=== PATIENT | female | born 1990 | race Caucasian/White ===

== ENCOUNTER → 2017-03-18 | Outpatient (CLI) | payer OTHER ==
[~2017-03-18] MED LIST: AUGM500T34 GT; COLA50CA3 PO; IBUP80TA PO; MOM30SS PO; PERCOCET PO; PRENTAB74 PO
[2017-03-18 10:57] LABS: ALBUMIN 3.6 GM/DL (3.2-5.2); ALBUMIN/GLOBULIN RATIO 1.16 (1.00-1.93); ALKALINE PHOSPHATASE 91 U/L (45-117); ALT/SGPT 19 U/L (12-78); ANION GAP 6 MEQ/L (8-16); AST/SGOT 12 U/L (15-37); BILIRUBIN,TOTAL 0.9 MG/DL (0.2-1.0); BLOOD UREA NITROGEN 12 MG/DL (7-18); CALCIUM LEVEL 8.1 MG/DL (8.5-10.1); CARBON DIOXIDE LEVEL 25 MEQ/L (21-32); CHLORIDE LEVEL 109 MEQ/L (98-107); CHOLESTEROL LEVEL 155 MG/DL (<200); CREATININE FOR GFR 0.66 MG/DL (0.55-1.02); FREE T4 0.99 NG/DL (0.76-1.46); GLOMERULAR FILTRATION RATE > 60.0 (>60); GLUCOSE, FASTING 86 MG/DL (70-105); SODIUM LEVEL 140 MEQ/L (136-145); TOTAL PROTEIN 6.7 GM/DL (6.4-8.2); TRIGLYCERIDES LEVEL 78 MG/DL (<150)
== END ==
LOC: M LAB 10:00
PROVIDERS: ATTEND Family Medicine
DX: Z82.49 Family history of ischemic heart disease and other diseases of the circulatory system (principal); Z13.29 Encounter for screening for other suspected endocrine disorder

== ENCOUNTER → 2017-09-07 | Outpatient (REF) | payer OTHER | LOC: M LAB REF 17:23 | PROVIDERS: ATTEND Advanced Practice Midwife | DX: Z12.4 Encounter for screening for malignant neoplasm of cervix (principal) ==

== ENCOUNTER → 2018-03-23 | Outpatient (CLI) | payer OTHER ==
[2018-03-23 18:39] LABS: TOTAL 25(OH) VITAMIN D 43.9 NG/ML (30.0-100.0)
== END ==
LOC: M SMT 13:57
DX: E55.9 Vitamin D deficiency, unspecified (principal)
CPT/HCPCS: 82306

== ENCOUNTER → 2018-09-04 | Outpatient (CLI) | payer OTHER ==
[2018-09-04 13:05] LABS: BASO % 0.3 % (0.0-1.0); EOS # 0.1 10^3/uL (0.0-0.50); EOS % 1.9 % (0.0-3.0); HEMATOCRIT 37.7 % (36.0-47.0); HEMOGLOBIN 12.4 g/dl (12.0-15.5); IMMATURE GRANULOCYTE % 0.5 % (0-3.0); LYMPH # 1.2 10^3/uL (1.5-6.5); LYMPH % 20.9 % (24.0-44.0); MEAN CORPUSCULAR HGB CONC 32.9 g/dl (32.0-36.5); MEAN CORPUSCULAR VOLUME 91.3 fl (80.0-96.0); MONO # 0.4 10^3/uL (0.0-0.8); MONO % 6.5 % (0.0-5.0); NEUTROPHILS # 4.1 10^3/uL (1.8-7.7); NEUTROPHILS % 69.9 % (36.0-66.0); PLATELET COUNT, AUTOMATED 189 10^3/uL (150-450); RED BLOOD COUNT 4.13 10^6/uL (4.00-5.40); RED CELL DISTRIBUTION WIDTH 12.8 % (11.5-14.5); WHITE BLOOD COUNT 5.8 10^3/uL (4.0-10.0)
[2018-09-04 14:39] LABS: CHLAMYDIA DNA AMPLIFICATION NEGATIVE (NEGATIVE); GC DNA AMPLIFICATION NEGATIVE (NEGATIVE)
[2018-09-06 10:57] LABS: HBsAg Prenatal NEGATIVE (NEGATIVE); HIV 1&2 SCREEN CENTAUR NEGATIVE (NEGATIVE); RUBELLA IgG QUALITATIVE IMMUNE (IMMUNE)
[2018-09-06 10:57] LABS: HEPATITIS C VIRUS ABY INDEX < 0.0 INDEX (<0.8)
== END ==
LOC: M WUC 10:55
DX: Z34.81 Encounter for supervision of other normal pregnancy, first trimester (principal)
CPT/HCPCS: 86762

== ENCOUNTER → 2018-10-25 | Outpatient (CLI) | payer OTHER | LOC: M SMT 08:34 | DX: Z34.82 Encounter for supervision of other normal pregnancy, second trimester (principal); Z36.89 Encounter for other specified antenatal screening; Z3A.18 18 weeks gestation of pregnancy | CPT/HCPCS: 76811 ==

== ENCOUNTER → 2018-12-02 | Outpatient (CLI) | payer OTHER ==
--- NOTE | 2018-12-03 04:24 | REP ---
Clinical: Anatomical evaluation. Comparison: 10/25/2018 . Findings: Examination demonstrates a single live intrauterine in cephalic presentation. motion is identified by technologist. Placenta is noted posterior and grade grade 1 without evidence for placenta previa or abruption. Amniotic fluid volume is normal. Cervix measures 3.7 cm in length and appears closed. No evidence for nuchal cord. Gestational age by LMP 24 weeks 0 days with SURESH 03/24/2019 . Gestational age by current measurements 24 weeks one with SURESH 2018 . FHR equals 147 beats per minute. Estimated weight 759 grams ( 73rd percentile). Anatomical assessment demonstrates normal structures including cranium, choroid plexus, cavum, cerebellum/posterior fossa, facial features, lungs, four-chamber heart/ventricular outflow tracts, diaphragm, stomach, cord insertion/three-vessel cord, bladder, spine, and extremities. Bilateral renal pelviectasis to 5.1 mm diameter noted. Impression: 1. Single live intrauterine in cephalic presentation demonstrating appropriate interval growth. 2. With the exception of mild renal pelviectasis to 5.1 mm diameter, the anatomical assessment is complete and normal. Electronically Signed by Tripp Del Rio MD 12/03/2018 04:15 A
== END ==
LOC: M SMT 08:27
PROVIDERS: ATTEND Obstetrics & Gynecology
DX: Z34.82 Encounter for supervision of other normal pregnancy, second trimester (principal); Z36.89 Encounter for other specified antenatal screening; Z3A.24 24 weeks gestation of pregnancy

== ENCOUNTER → 2018-12-14 | Outpatient (CLI) | payer OTHER ==
[2018-12-14 13:49] LABS: HEMOGLOBIN 11.4 g/dl (12.0-15.5); MEAN CORPUSCULAR HEMOGLOBIN 30.6 pg (27.0-33.0); MEAN CORPUSCULAR HGB CONC 33.5 g/dl (32.0-36.5); MEAN CORPUSCULAR VOLUME 91.4 fl (80.0-96.0); PLATELET COUNT, AUTOMATED 181 10^3/uL (150-450); RED BLOOD COUNT 3.72 10^6/uL (4.00-5.40); WHITE BLOOD COUNT 8.3 10^3/uL (4.0-10.0)
== END ==
LOC: M SMT 09:34
PROVIDERS: ATTEND Obstetrics & Gynecology
DX: Z34.82 Encounter for supervision of other normal pregnancy, second trimester (principal); Z36.89 Encounter for other specified antenatal screening

== ENCOUNTER → 2019-02-02 | Outpatient (REF) | payer OTHER | LOC: M LAB REF 17:37 | PROVIDERS: ATTEND Family Medicine | DX: J02.9 Acute pharyngitis, unspecified (principal) ==

== ENCOUNTER → 2019-03-02 | Outpatient (REF) | payer OTHER ==
[~2019-03-02] MED LIST changes: +FLUO20CA8 PO; +MULTTAB20 PO; +OMEP40CA2 PO; +OXYC1TAB23 PO; -PERCOCET PO; +VITAD1000T PO
== END ==
LOC: M LAB REF 17:23
PROVIDERS: ATTEND Obstetrics & Gynecology
DX: Z34.83 Encounter for supervision of other normal pregnancy, third trimester (principal); Z36.89 Encounter for other specified antenatal screening

== ENCOUNTER 2019-03-16 07:28 | Inpatient (IN) | payer OTHER ==
[2019-03-16] VITALS (8 sets, daily range): BP systolic 102–126; BP diastolic 53–68
[~2019-03-16] VITALS: Ht 162.6 cm; Wt 82.2 kg
[2019-03-16] MEDS ORDERED: BICITRA 30ML SOLN UDC PO ONE (08:00)
[2019-03-16] MEDS ORDERED: LR 1,000 ML IV ONE (08:00)
[2019-03-16 08:44] LABS: HEMATOCRIT 35.9 % (36.0-47.0); HEMOGLOBIN 11.8 g/dl (12.0-15.5); MEAN CORPUSCULAR HEMOGLOBIN 30.3 pg (27.0-33.0); MEAN CORPUSCULAR HGB CONC 32.9 g/dl (32.0-36.5); MEAN CORPUSCULAR VOLUME 92.1 fl (80.0-96.0); PLATELET COUNT, AUTOMATED 171 10^3/uL (150-450); WHITE BLOOD COUNT 8.1 10^3/uL (4.0-10.0)
[2019-03-16] MEDS ORDERED: LR 1,000 ML IV SCH ×2 (09:00→12:15)
[2019-03-16] MEDS ORDERED: NALBUPHINE HCL 10 MG/ML AMP (J2300) IV PRN (10:21)
[2019-03-16] MEDS ORDERED: METOCLOPRAMIDE INJ 10MG/2ML VIAL (J2765) IV PRN (10:21)
[2019-03-16] MEDS ORDERED: NALOXONE INJ 0.4 MG/1 ML VIAL (J2310) IV PRN ×2 (10:21)
[2019-03-16] MEDS ORDERED: ONDANSETRON 4MG/2ML VIAL (J2405) IV PRN ×3 (10:21→12:15)
[2019-03-16] MEDS ORDERED: diphenhydrAMINE INJ 50MG/ML VIAL (J1200) IV PRN (10:21)
[2019-03-16] MEDS ORDERED: OXYTOCIN INJ 10 UNITS/ML VIAL (J2590) As Ordered ONE (10:38)
[2019-03-16] MEDS ORDERED: BUPIVACAINE/DEXTROSE 0.75% 2 ML AMP As Ordered ONE (10:38)
[2019-03-16] MEDS ORDERED: MORPHINE PRES-FREE INJ 10 MG/10 ML VIAL (J2274) As Ordered ONE (10:38)
[2019-03-16] MEDS ORDERED: ONDANSETRON 4MG/2ML VIAL (J2405) As Ordered ONE (11:05)
[2019-03-16] MEDS ORDERED: OXYTOCIN 30 UNITS IN 0.9% NaCl 500ML IV BAG (J2590) As Ordered ONE (11:41)
[2019-03-16] MEDS ORDERED: OXYTOCIN DRIP 30 UNITS in APPROPRIATE DILUENT 1 EA IV SCH (11:42)
[2019-03-16] MEDS ORDERED: PERCOCET 5MG/325MG TAB PO PRN ×3 (11:45→12:15)
[2019-03-16] MEDS ORDERED: MOM 30ML SUSPENSION UDC PO PRN (11:45)
[2019-03-16] MEDS ORDERED: RHOGAM 300 MCG (1500 IU) INJ (J2790) IM SCH (11:45)
[2019-03-16] MEDS ORDERED: MEASLES,MUMPS,RUBELLA VACCINE INJ (MMR-II) (90707) SC SCH (11:45)
[2019-03-16] MEDS ORDERED: KETOROLAC 30 MG/ML VIAL (J1885) IV PRN (12:15)
[2019-03-16] MEDS ORDERED: fentaNYL 100 MCG/2 ML INJECTION (J3010) IV PRN (12:15)
[2019-03-16] MEDS ORDERED: KETOROLAC 30 MG/ML VIAL (J1885) As Ordered ONE (12:16)
--- NOTE | 2019-03-16 17:25 | RO ---
DATE OF PROCEDURE: 03/16/2019 PREOPERATIVE DIAGNOSIS: 1. History of two prior sections. 2. Intrauterine at 39+ weeks. POSTOPERATIVE DIAGNOSIS: 1. History of two prior sections. 2. Intrauterine at 39+ weeks. OPERATIVE PROCEDURE: Repeat section. SURGEON: Jody Matthew MD EDUCATION DIAGNOSTICIAN: Samara Alexandra CNM ANESTHESIA: Spinal. ESTIMATED BLOOD LOSS: 100 mL IV FLUIDS: 2 liters lactated Ringer's solution. URINE OUTPUT: 200 mL OPERATIVE FINDINGS: Live born female , Apgars 8 and 9. Weight was 3650 grams or 8 pounds 1 ounce. PREOPERATIVE ANTIBIOTICS: 2 grams of Ancef. SPECIMENS: None. DESCRIPTION OF OPERATION After informed consent was obtained and written consent was reviewed, the patient was brought to the operating room where spinal anesthesia was placed. She was then placed in the supine position with a left lateral tilt. Avelar catheter was placed and set to gravity. She was then prepped and draped in a normal sterile fashion. Time out in the operating room was then performed identifying the patient, procedure to be performed as well as drug allergies. Anesthesia was tested and deemed to be adequate. A Pfannenstiel skin incision was then made and carried down to the underlying fascia. This was performed along the previous skin incision. The fascia was then dissected off the underlying rectus muscles both superiorly and inferiorly. The rectus muscles were in the midline. Peritoneum was then entered sharply. The vesicouterine peritoneum was then identified, was then excised to create a bladder flap. A Mobius uterine retractor was then placed. A curvilinear incision was then made along the lower uterine segment. Amniotomy was then performed productive of clear fluid. The head was brought to the level of the incision atraumatically and delivered along with shoulders and corpus. Cord was clamped times two and was cut and infant was taken over to the warmer with a good cry. Placenta was then delivered grossly intact. The uterus was then cleared of all clots and debris. The uterine incision was then closed in two layers using #0 Vicryl first in a running locking fashion followed by a second layer for imbrication in a running nonlocking fashion. The abdomen was then suctioned. Mobius retractor was then removed. The anterior peritoneum was then reapproximated with #3-0 Vicryl. Rectus muscles reapproximated #3-0 Vicryl. The fascia was then closed with #0 Vicryl in a running nonlocking fashion. Subcutaneous tissue was then irrigated and suctioned. Subcutaneous tissue was reapproximated with #3-0 Vicryl. Several subdermal stitches were placed with #3-0 Vicryl and the skin was closed with #4-0 Monocryl in a subcuticular fashion. The incision was then clean and dry and was dressed. The patient was then taken to recovery in stable condition. Counts were correct. The couple has decided to name their daughter, Tahir. Samara Alexandra, my surgical endoscopist played an essential role during surgery. She assisted with tissue identification, retraction and delivery of the as well as wound closure.
[2019-03-16] MEDS: KETOROLAC 30 MG/ML VIAL (J1885) IV SCH (18:06)
[2019-03-16] MEDS: LR 1,000 ML IV SCH (19:42)
[2019-03-16] MEDS: DOCUSATE SODIUM 100 MG CAP PO SCH (21:15)
[2019-03-17] VITALS (7 sets, daily range): BP systolic 92–116; BP diastolic 52–62
[2019-03-17] MEDS: KETOROLAC 30 MG/ML VIAL (J1885) IV SCH ×2 (00:17→06:09)
[2019-03-17] MEDS: LR 1,000 ML IV SCH ×4 (03:42→23:18)
[2019-03-17 07:24] LABS: HEMATOCRIT 28.3 % (36.0-47.0); MEAN CORPUSCULAR HEMOGLOBIN 30.3 pg (27.0-33.0); MEAN CORPUSCULAR HGB CONC 32.9 g/dl (32.0-36.5); MEAN CORPUSCULAR VOLUME 92.2 fl (80.0-96.0); PLATELET COUNT, AUTOMATED 165 10^3/uL (150-450); RED BLOOD COUNT 3.07 10^6/uL (4.00-5.40); WHITE BLOOD COUNT 9.7 10^3/uL (4.0-10.0)
[2019-03-17 07:25] LABS: HEMOGLOBIN 9.3 g/dl (12.0-15.5)
[2019-03-17] MEDS: DOCUSATE SODIUM 100 MG CAP PO SCH ×2 (08:27→20:28)
[2019-03-17] MEDS: PRENATAL VITAMINS CHEWABLE TABLET PO SCH (08:27)
[2019-03-17] MEDS: ACETAMINOPHEN 500 MG TAB PO PRN ×2 (13:19→20:28)
[2019-03-17] MEDS: IBUPROFEN 800 MG TAB PO SCH ×2 (13:19→22:22)
[2019-03-17] MEDS: FLUoxetine 10 MG CAP PO SCH (14:51)
[2019-03-18 01:51] VITALS: BP 87/48
[2019-03-18] MEDS ORDERED: IBUP1TAB7 PO (05:45)
[2019-03-18 05:46] VITALS: BP 122/59
[2019-03-18] MEDS ORDERED: OXYC1TAB23 PO (06:17)
[2019-03-18] MEDS: IBUPROFEN 800 MG TAB PO SCH (06:30)
--- NOTE | 2019-03-18 06:36 | NUR ---
POD#2 S: Doing well w/o complaints. Pain moderately controlled. Tolerating reg diet, + ambulation O: vss, AF Gen: well appearing abd: soft, appropriately tender incision: dressed ext: neg calf tenderness A/P: POD # 2 s/p repeat c/s with - recovering in stable condition -cont routine postoperative care -disposition tomorrow, or later today Jody Matthew MD
[2019-03-18] MEDS ORDERED: PERCOCET 5MG/325MG TAB PO PRN ×2 (06:45)
[2019-03-18] MEDS ORDERED: MOM30SS PO (07:29)
[2019-03-18] MEDS ORDERED: COLA100C5 PO (07:29)
[2019-03-18] MEDS ORDERED: ACET-683 PO (07:29)
[2019-03-18 07:32] LABS: HEMATOCRIT 29.4 % (36.0-47.0); HEMOGLOBIN 9.4 g/dl (12.0-15.5); MEAN CORPUSCULAR HEMOGLOBIN 30.5 pg (27.0-33.0); MEAN CORPUSCULAR VOLUME 95.5 fl (80.0-96.0); PLATELET COUNT, AUTOMATED 161 10^3/uL (150-450); RED BLOOD COUNT 3.08 10^6/uL (4.00-5.40); WHITE BLOOD COUNT 8.7 10^3/uL (4.0-10.0)
[2019-03-18] MEDS: DOCUSATE SODIUM 100 MG CAP PO SCH (08:25)
[2019-03-18] MEDS: PRENATAL VITAMINS CHEWABLE TABLET PO SCH (08:25)
[2019-03-18] MEDS: FLUoxetine 10 MG CAP PO SCH (08:26)
== END 2019-03-18 13:45 | disposition home or self-care (01) | DRG 773 ==
LOC: M LDI 07:28 → M OBS 14:13
PROVIDERS: ADMIT Obstetrics & Gynecology; ATTEND Obstetrics & Gynecology
PROC: 10D00Z1 Extraction of Products of Conception, Low, Open Approach (ICD-10-PCS; principal; 2019-03-16 09:30)
DX: O34.211 Maternal care for low transverse scar from previous cesarean delivery (principal); Z37.0 Single live birth; Z3A.39 39 weeks gestation of pregnancy

== ENCOUNTER → 2019-03-24 | Outpatient (CLI) | payer OTHER ==
[~2019-03-24] MED LIST changes: +ACET-683 PO; +COLA100C5 PO; +IBUP1TAB7 PO
[2019-03-24 17:33] LABS: BASO # 0.1 10^3/uL (0.0-0.2); BASO % 0.7 % (0.0-1.0); EOS # 0.2 10^3/uL (0.0-0.50); HEMATOCRIT 37.4 % (36.0-47.0); LYMPH % 26.5 % (24.0-44.0); MEAN CORPUSCULAR HEMOGLOBIN 30.1 pg (27.0-33.0); MEAN CORPUSCULAR HGB CONC 32.1 g/dl (32.0-36.5); MEAN CORPUSCULAR VOLUME 93.7 fl (80.0-96.0); MONO # 0.6 10^3/uL (0.0-0.8); MONO % 7.6 % (0.0-5.0); NEUTROPHILS # 4.7 10^3/uL (1.8-7.7); NEUTROPHILS % 62.4 % (36.0-66.0); PLATELET COUNT, AUTOMATED 368 10^3/uL (150-450); RED BLOOD COUNT 3.99 10^6/uL (4.00-5.40); WHITE BLOOD COUNT 7.5 10^3/uL (4.0-10.0)
[2019-03-24 17:46] LABS: FREE T4 1.31 NG/DL (0.76-1.46); THYROID STIMULATING HORMONE 2.67 uIU/ML (0.358-3.740)
== END ==
LOC: M SMT 13:56
PROVIDERS: ATTEND Family Medicine
DX: Z13.0 Encounter for screening for diseases of the blood and blood-forming organs and certain disorders involving the immune mechanism (principal)

== ENCOUNTER → 2021-05-29 | Outpatient (REF) | payer OTHER ==
[~2021-05-29] MED LIST changes: +CHOL100029 PO; +FLUO20CA20 PO; -FLUO20CA8 PO; -OMEP40CA2 PO; +OMEP40CA4 PO; -VITAD1000T PO
== END ==
LOC: M SFHCWAGY 10:11
PROVIDERS: ATTEND Advanced Practice Midwife
DX: Z12.4 Encounter for screening for malignant neoplasm of cervix (principal)

== ENCOUNTER 2023-03-05 12:56 | Day surgery (SDC) | payer OTHER ==
[~2023-03-05] VITALS: Ht 160 cm; Wt 76.8 kg
[~2023-03-05 12:56] MED LIST changes: +BUPR300T92 PO; +FAMO40TA3 PO; +FLUO-96 PO; -FLUO20CA20 PO; +LORY1TAB2 PO; +NS 1,000 ML IV ONE
[2023-03-05] MEDS ORDERED: propofoL 500 MG/50 ML VIAL As Ordered ONE (14:32)
[2023-03-05] MEDS ORDERED: LIDOCAINE 2% 100MG/5ML SDV (FOR ANES.) As Ordered ONE (14:32)
[2023-03-05 15:10] VITALS: BP 132/80
== END 2023-03-05 15:21 | disposition home or self-care (01) ==
LOC: M OPP 12:56
PROVIDERS: ATTEND Internal Medicine Gastroenterology
DX: K44.9 Diaphragmatic hernia without obstruction or gangrene (principal); R12 Heartburn; Z79.1 Long term (current) use of non-steroidal anti-inflammatories (NSAID); Z79.3 Long term (current) use of hormonal contraceptives; Z79.899 Other long term (current) drug therapy

== ENCOUNTER → 2024-06-17 | Outpatient (REF) | payer OTHER ==
[~2024-06-17] MED LIST changes: +BUPR-597 PO; -BUPR300T92 PO; -NS 1,000 ML IV ONE
[2024-06-17 13:16] LABS: APPEARANCE, URINE HAZY (CLEAR); BACTERIA, URINE AUTO NEGATIVE (NEGATIVE); BILIRUBIN, URINE AUTO NEGATIVE (NEGATIVE); BLOOD, URINE BLOOD 2+ (NEGATIVE); COLOR, URINE YELLOW (YELLOW); GLUCOSE, URINE (UA) AUTO NEGATIVE (NEGATIVE); KETONE, URINE AUTO NEGATIVE (NEGATIVE); LEUKOCYTE ESTERASE, URINE AUTO 3+ (NEGATIVE); NITRITE, URINE AUTO NEGATIVE (NEGATIVE); PROTEIN, URINE AUTO 2+ mg/dL (NEGATIVE); RBC, URINE AUTO 113 /HPF (0-3); SPECIFIC GRAVITY URINE AUTO 1.019 (1.002-1.035); SQUAMOUS EPITHELIAL CELL UR AU 1 /HPF (0-6); UROBILINOGEN, URINE AUTO 0.2 mg/dL (0.0-2.0); WBC, URINE AUTO TNTC /HPF (0-3)
== END ==
LOC: M LAB REF 12:16
PROVIDERS: ATTEND Physician Assistant
DX: N39.0 Urinary tract infection, site not specified (principal)